=== PATIENT | male | born 1940 | race African-American/Black ===

== ENCOUNTER 2020-09-27 11:12 | Inpatient (IN) | payer MEDICARE, OTHER ==
[~2020-09-27] VITALS: Ht 190.5 cm; Wt 104.6 kg
--- NOTE | 2020-09-27 11:27 | ED.ADGEN ---
General Adult EDM: Chief Complaint: DIZZY/LIGHT HEADED HPI: HPI: Patient is an 80-year-old male who arrives ambulatory to the emergency department complaining of substernal chest pain since 1500 hrs. yesterday. Patient reports his pain is been ongoing since that time. Patient states whenever he stands up he feels very lightheaded as if he might pass out with this pain. Patient states in addition to this he has felt slightly short of air. Despite this he denies any history of cough or fever. He further denies any known sick contacts and states that he has had the coronavirus vaccination series. He further states that he is not had any nausea or diaphoresis and states his pain does not radiate. He is awake, alert and uncomfortable appearing. Review of Systems: Review of Systems: Constitutional: Denies fever or chills. [] Eyes: Denies change in visual acuity. [] HENT: Denies nasal congestion or sore throat. [] Respiratory: Reports shortness of air with exertion. Denies cough. [] Cardiovascular: Reports chest pain and feeling lightheaded. Denies edema. [] GI: Denies abdominal pain, nausea, vomiting, bloody stools or diarrhea. [] : Denies dysuria. [] Musculoskeletal: Denies back pain or joint pain. [] Integument: Denies rash. [] Neurologic: Denies headache, focal weakness or sensory changes. [] Endocrine: Denies polyuria or polydipsia. [] Lymphatic: Denies swollen glands. [] Psychiatric: Denies depression or anxiety. [] Physical Exam: PE: Constitutional: Well developed, well nourished, no acute distress, non-toxic appearance. [] HENT: Normocephalic, atraumatic, bilateral external ears normal, oropharynx moist, no oral exudates, nose normal. [] Eyes: PERRLA, EOMI, conjunctiva normal, no discharge. [] Neck: Normal range of motion, no tenderness, supple, no stridor. [] Cardiovascular:Heart rate regular rhythm, no murmur [] Lungs & Thorax: Bilateral breath sounds clear to auscultation [] Abdomen: Bowel sounds normal, soft, no tenderness, no masses, no pulsatile masses. [] Skin: Warm, dry, no erythema, no rash. [] Back: No tenderness, no CVA tenderness. [] Extremities: No tenderness, no cyanosis, no clubbing, ROM intact, no edema. [] Neurologic: Alert and oriented X 3, normal motor function, normal sensory function, no focal deficits noted. [] Psychologic: Affect normal, judgement normal, mood normal. [] Current Patient Data: Labs: Laboratory Tests Test 09/27/20 11:23 White Blood Count 6.0 x10^3/uL (4.0-11.0) Red Blood Count 4.73 x10^6/uL (4.30-5.70) Hemoglobin 13.1 g/dL (13.0-17.5) Hematocrit 39.8 % (39.0-53.0) Mean Corpuscular Volume 84 fL (79-100) Mean Corpuscular Hemoglobin 28 pg (25-35) Mean Corpuscular Hemoglobin Concent 33 g/dL (31-37) Red Cell Distribution Width 15.1 % (11.5-14.5) H Platelet Count 224 x10^3/uL (140-400) Neutrophils (%) (Auto) 69 % (31-73) Lymphocytes (%) (Auto) 17 % (24-48) L Monocytes (%) (Auto) 11 % (0-9) H Eosinophils (%) (Auto) 2 % (0-3) Basophils (%) (Auto) 1 % (0-3) Neutrophils # (Auto) 4.1 x10^3/uL (1.8-7.7) Lymphocytes # (Auto) 1.0 x10^3/uL (1.0-4.8) Monocytes # (Auto) 0.7 x10^3/uL (0.0-1.1) Eosinophils # (Auto) 0.1 x10^3/uL (0.0-0.7) Basophils # (Auto) 0.1 x10^3/uL (0.0-0.2) Sodium Level 141 mmol/L (136-145) Potassium Level 3.6 mmol/L (3.5-5.1) Chloride Level 102 mmol/L (98-107) Carbon Dioxide Level 29 mmol/L (21-32) Anion Gap 10 (6-14) Blood Urea Nitrogen 16 mg/dL (8-26) Creatinine 1.3 mg/dL (0.7-1.3) Estimated GFR (Cockcroft-Gault) 52.9 BUN/Creatinine Ratio 12 (6-20) Glucose Level 135 mg/dL (70-99) H Calcium Level 8.5 mg/dL (8.5-10.1) Total Bilirubin 1.5 mg/dL (0.2-1.0) H Aspartate Amino Transferase (AST) 24 U/L (15-37) Alanine Aminotransferase (ALT) 29 U/L (16-63) Alkaline Phosphatase 71 U/L (46-116) Troponin I Quantitative < 0.017 ng/mL (0.000-0.055) PS-Nvn-V-Type Natriuretic Peptide 6 pg/mL (0-449) Total Protein 7.1 g/dL (6.4-8.2) Albumin 3.6 g/dL (3.4-5.0) Albumin/Globulin Ratio 1.0 (1.0-1.7) Lipase 82 U/L (73-393) Laboratory Tests 09/27/20 11:23 Laboratory Tests 09/27/20 11:23 Vital Signs: Vital Signs Date Time Temp Pulse Resp B/P (MAP) Pulse Ox O2 Delivery O2 Flow Rate FiO2 09/27/20 11:37 97.5 91 16 150/76 (100) 96 Room Air 97.5 EKG: EKG: [] EKG was obtained at 11:18 AM which revealed a normal sinus rhythm with a ventricular rate of 76 bpm. 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 There are no acute ST/T wave changes to denote any acute ischemia. Heart Score: C/O Chest Pain: Yes HEART Score for Chest Pain: HEART Score for Chest Pain Response (Comments) Value History Slighlty/Non-Suspicious 0 ECG Nonspecific Repolarizatio 1 Age > 65 2 Risk Factors 1 or 2 Risk Factors 1 Troponin < Normal Limit 0 Total 4 Risk Factors: Risk Factors: DM, Current or recent (<one month) smoker, HTN, HLP, family history of CAD, obesity. Risk Scores: Score 0 - 3: 2.5% MACE over next 6 weeks - Discharge Home Score 4 - 6: 20.3% MACE over next 6 weeks - Admit for Clinical Observation Score 7 - 10: 72.7% MACE over next 6 weeks - Early Invasive Strategies Radiology/Procedures: Radiology/Procedures: [] Impression: [facility] [address] [place] [address] IMAGING REPORT Signed PATIENT: LUCIA GUPTA ACCOUNT: [id number] : 1940 LOCATION: ER AGE: 80 SEX: M EXAM STATUS: PRE ER ORD. PHYSICIAN: ROBERTO CARLOS MONTES DE OCA DO REASON: Chest pain PROCEDURE: PORTABLE CHEST 1V Single AP view of the chest. Comparison: 11/12/2012. Indication: Pain Findings: The heart is not enlarged. There is no pneumothorax or effusion. No air space or interstitial disease. Impression: 1. No acute cardiopulmonary process. Electronically signed by: Carlitos Dale MD (09/27/2020 11:43 AM) [id number] DICTATED and SIGNED BY: CARLITOS DALE MD DATE: 09/27/20 [id number] Course & Med Decision Making: Course & Med Decision Making Pertinent Labs and Imaging studies reviewed. (See chart for details) [] Dragon Disclaimer: Jimmy Disclaimer: This electronic medical record was generated, in whole or in part, using a voice recognition dictation system. Departure Departure Impression: Primary Impression: Chest pain Disposition: ADMITTED INPATIENT Admitting Physician: JARAD Condition: STABLE Referrals: NON,STAFF (PCP) ROBERTO CARLOS MONTES DE OCA DO Sep 27, 2020 11:26
[2020-09-27 11:36] LABS: BASO # 0.1 x10^3/uL (0.0-0.2); BASO % 1 % (0-3); EOS # 0.1 x10^3/uL (0.0-0.7); EOS % 2 % (0-3); HEMATOCRIT 39.8 % (39.0-53.0); HEMOGLOBIN 13.1 g/dL (13.0-17.5); LYMPH % 17 % (24-48); MEAN CORPUSCULAR HEMOGLOBIN 28 pg (25-35); MEAN CORPUSCULAR HGB CONC 33 g/dL (31-37); MEAN CORPUSCULAR VOLUME 84 fL (79-100); MONO # 0.7 x10^3/uL (0.0-1.1); MONO % 11 % (0-9); NEUT # 4.1 x10^3/uL (1.8-7.7); NEUT % 69 % (31-73); PLATELET COUNT 224 x10^3/uL (140-400); RED BLOOD COUNT 4.73 x10^6/uL (4.30-5.70); RED CELL DISTRIBUTION WIDTH 15.1 % (11.5-14.5)
--- NOTE | 2020-09-27 11:45 | RAD ---
Single AP view of the chest. Comparison: 11/12/2012. Indication: Pain Findings: The heart is not enlarged. There is no pneumothorax or effusion. No air space or interstitial diseas e. Impression: 1. No acute cardiopulmonary process. Electronically signed by: Carlitos Inman MD (09/27/2020 11:43 AM) [id number]
[2020-09-27 11:54] LABS: CALCIUM 8.5 mg/dL (8.5-10.1); CREATININE 1.3 mg/dL (0.7-1.3); GFR 52.9; POTASSIUM 3.6 mmol/L (3.5-5.1)
[2020-09-27 11:59] LABS: ALBUMIN 3.6 g/dL (3.4-5.0); TOTAL BILIRUBIN 1.5 mg/dL (0.2-1.0); TOTAL PROTEIN 7.1 g/dL (6.4-8.2)
--- NOTE | 2020-09-27 12:24 | EKG ---
[facility] [address] [place] [address] Test Date: 2020-09-27 Test Time: 11:18:51 Pat Name: LUCIA GUPTA Department: Room: Gender: M [employer] Driving: : 1940 Requested By: ROBERTO CARLOS MONTES DE OCA Order Number: [id number] Reading MD: Jeffrey Simpson MD Measurements Intervals [place]ou Rate: 76 P: 57 GA: 148 QRS: -55 QRSD: 94 T: 82 QT: 392 QTc: 445 Interpretive Statements SINUS RHYTHM ABNORMAL LEFT AXIS DEVIATION QRS(T) CONTOUR ABNORMALITY CONSISTENT WITH INFERIOR INFARCT PROBABLY OLD ST & T ABNORMALITY, CONSIDER Electronically Signed On 09-28-2020 8:52:56 CDT by Jeffrey Simpson MD
[2020-09-27] MEDS ORDERED: MORPHINE SULFATE 4 MG/ML VIAL. IV PRN (12:45)
[2020-09-27] MEDS ORDERED: ASPIRIN 325 MG TABLET PO ONE (12:45)
[2020-09-27] MEDS ORDERED: ONDANSETRON PF 4 MG/2 ML VIAL. IV PRN (12:45)
[2020-09-27 14:30] VITALS: BP 168/89
[2020-09-27] MEDS ORDERED: MV-M1TAB7 PO (16:51)
[2020-09-27] MEDS ORDERED: BUDE10.22 IH (16:51)
[2020-09-27] MEDS ORDERED: TIOT18CA IH (16:51)
[2020-09-27] MEDS ORDERED: TAMS0.4C97 PO (16:51)
[2020-09-27] MEDS ORDERED: ALBU2.5V5 NEB (16:51)
[2020-09-27] MEDS ORDERED: HYDR50TA9 PO (16:51)
[2020-09-27] MEDS ORDERED: ATOR40TA59 PO (16:51)
[2020-09-27] MEDS ORDERED: ALBUTEROL SULFATE 2.5 MG/3 ML NEBU. NEB PRN (17:00)
--- NOTE | 2020-09-27 17:48 | HP ---
ADMIT DATE: 09/27/2020 ADDENDUM PAST MEDICAL HISTORY: COPD, hypertension, hyperlipidemia, BPH and previous tobacco abuse. JED DR: Nimo TID: [id number]
--- NOTE | 2020-09-27 17:50 | HP ---
ADMIT DATE: 09/27/2020 CHIEF COMPLAINT: Chest pain and dizziness. HISTORY OF PRESENT ILLNESS: The patient is a pleasant 80-year-old male who presents to the ER today with chest pain that has been occurring since 3:00 yesterday. It is intermittent, substernal. He has associated weakness and feels like he is going to pass out when he walks. He also feels short of breath, rates his symptoms at 7/10. It is worse with moving, better with sitting still, creates some anxiety for him. I discussed the case with the ER physician. We are going to admit the patient and consult Cardiology. PAST MEDICAL HISTORY: COPD, hypertension, hyperlipidemia, BPH and previous tobacco abuse. PAST SURGICAL HISTORY: None. FAMILY HISTORY: Diabetes. SOCIAL HISTORY: He does not currently drink, smoke or take drugs. He is retired. MEDICATIONS: Reviewed. ALLERGIES: Reviewed. Please refer to the MRAD. REVIEW OF SYSTEMS: GENERAL: No history of weight change, weakness or fevers. SKIN: No bruising, hair changes or rashes. EYES: No blurred, double or loss of vision. NOSE AND THROAT: No history of nosebleeds, hoarseness or sore throat. HEART: He complains of chest pain. LUNGS: He complains of shortness of breath. GASTROINTESTINAL: Denies changes in appetite, nausea, vomiting, diarrhea or constipation. GENITOURINARY: No history of frequency, urgency, hesitancy or nocturia. NEUROLOGIC: Denies history of numbness, tingling, tremor or weakness. PSYCHIATRIC: No history of panic, anxiety or depression. ENDOCRINE: No history of heat or cold intolerance, polyuria or polydipsia. EXTREMITIES: Denies muscle weakness, joint pain, pain on walking or stiffness. . PHYSICAL EXAMINATION: VITALS: Within normal limits and are stable. GENERAL: No apparent distress. Alert and oriented. HEENT: Normal cephalic atraumatic, external auditory canals are patent EYES: Extraocular muscles are intact, pupils are equally round and reactive to light and accommodation MUSCULOSKELETAL: Well developed, well nourished, good range of motion ENDOCRINE: No thyromegaly was palpated LYMPHATICS: No cervical chain or axillary nodes were noted HEMATOPOIETIC: No bruising NECK: Supple, no JVD, no thyromegaly was noted. LUNGS: He has decreased breath sounds. HEART: RRR, S1, S2 present. Peripheral pulses intact, no obvious murmurs were noted. ABDOMEN: Soft, nontender. Positive bowel sounds no organomegaly, normal bowel sounds. EXTREMITIES: Without any cyanosis, clubbing, or edema. Pedal pulses intact, Homans sign is negative. NEUROLOGIC: Normal speech, normal tone. A and O x 3, moves all extremities, no obvious focal deficits. PSYCHIATRIC: Normal affect, normal mood. Stable. SKIN: No ulcerations or rashes, good skin turgor, no jaundice. VASCULAR: Good capillary refill, neurovascular bundle appears to be intact. LABORATORY DATA: Hematology is normal. Electrolytes are normal. Troponin is 0. Chest x-ray; without acute changes. ASSESSMENT AND PLAN: Chest pain and lightheadedness. The patient will be admitted. We will check serial enzymes, serial EKGs. Consult Cardiology. Cardiac monitoring, home medications, deep venous thrombosis prophylaxis. Full code. P.r.n. Morphine, p.r.n Zofran. YOLANDA/SJ/SUNG DR: YOLANDA/iveth TID: [id number]
[2020-09-27 19:20] VITALS: BP 115/62
[2020-09-27] MEDS: IPRATRPIUM/ALBUTEROL 0.5/2.5MG 3 ML NEBU. NEB SCH (19:46)
[2020-09-27] MEDS: BUDESONIDE 0.5 MG/2 ML NEBU. NEB SCH (19:46)
[2020-09-27] MEDS: ATORVASTATIN CALCIUM 40 MG TABLET. PO SCH (20:15)
[2020-09-27] MEDS: TAMSULOSIN 0.4 MG CAP.ER.24H. PO SCH (20:15)
[2020-09-27] MEDS ORDERED: NON FORMULARY ITEM (Budesonide/Formoterol Fumarate (Symbicort 80-4.5 Mcg Inhaler) 2 PUFF) IH SCH (21:00)
[2020-09-27 23:36] VITALS: BP 116/56
[2020-09-28 03:10] VITALS: BP 113/58
[2020-09-28 07:00] VITALS: BP 134/80
[2020-09-28] MEDS: BUDESONIDE 0.5 MG/2 ML NEBU. NEB SCH ×2 (07:47→20:52)
[2020-09-28] MEDS: IPRATRPIUM/ALBUTEROL 0.5/2.5MG 3 ML NEBU. NEB SCH ×4 (07:47→20:52)
--- NOTE | 2020-09-28 08:56 | PDOC2 ---
CARDIOLOGY CONSULT NOTE DATE OF SERVICE: DATE: 09/28/20 TIME: 08:53 CHIEF COMPLAINT: Chest pain HPI: 80-year-old man with past medical history as noted below who presents to the hospital in the setting of chest pain. Initial troponin was unremarkable but his peak to 2.1. He reports that at baseline he has exertional dyspnea with activities of daily living related to his COPD. He denies any previous anginal symptoms. No syncope or palpitations. Overnight he denies any other new or worsening chest pain and currently denies having active pain. PMHX: 1. Dyslipidemia 2. BPH 3. Mild hypertension SOCHX: Prior tobacco abuse, currently does not smoke use illicit drugs or consume alcohol. FAMHX: Noncontributory CURRENT MEDS: Current Medications Medications (Trade) Dose Ordered Sig/Jose Route PRN Reason Start Time Stop Time Status Last Admin Dose Admin Ondansetron HCl (Zofran) 4 mg PRN Q8HRS PRN IV NAUSEA/VOMITING 09/27/20 12:45 09/28/20 12:44 09/27/20 12:45 Morphine Sulfate (Morphine Sulfate) 4 mg PRN Q2HR PRN IV PAIN 09/27/20 12:45 09/28/20 12:44 09/27/20 12:46 Aspirin (Serene Aspirin) 325 mg 1X ONCE PO 09/27/20 12:45 09/27/20 12:46 DC 09/27/20 12:45 Atorvastatin Calcium (Lipitor) 40 mg HS PO 09/27/20 21:00 09/27/20 20:15 Tamsulosin HCl (Flomax) 0.8 mg HS PO 09/27/20 21:00 09/27/20 20:15 Albuterol/ Ipratropium (Duoneb) 3 ml RTQID NEB 09/27/20 20:00 09/28/20 07:47 Budesonide (Pulmicort) 0.5 mg RTBID NEB 09/27/20 20:00 09/28/20 07:47 Enoxaparin Sodium (Lovenox 100mg Syringe) 100 mg 1X ONCE SQ 09/28/20 00:30 09/28/20 00:31 DC 09/28/20 00:36 ALLERGIES: Allergies Coded Allergies Type Severity Reaction Last Updated Verified No Known Drug Allergies 09/27/20 No ROS: Negative unless otherwise mentioned above in HPI PHYSICAL EXAM: Vital Signs/I&O: Vital Signs Date Time Temp Pulse Resp B/P (MAP) Pulse Ox O2 Delivery O2 Flow Rate FiO2 09/28/20 07:49 97 Room Air 09/28/20 07:00 97.8 68 18 134/80 (98) 97.8 I & O 09/27/20 09/27/20 09/28/20 15:00 23:00 07:00 Intake Total 200 ml 300 ml Balance 200 ml 300 ml Physical Exam: The patient appeared well nourished and normally developed. Head exam is unremarkable. No scleral icterus or corneal arcus noted. Neck is without jugular venous distension, thyromegaly, or carotid bruits. Carotid upstrokes are brisk bilaterally. Lungs are clear to auscultation and percussion. Cardiac exam reveals the PMI to be normally sized and situated. Rhythm is regular. First and second heart sounds normal. No murmurs, rubs or gallops. Abdominal exam reveals normal bowel sounds, no masses, no organomegaly and no a ortic enlargement. Extremities are nonedematous and both femoral and pedal pulses are normal. Msk: No traumua Neuro: No focal deficits DIAGNOSTIC TESTIN. Echocardiogram demonstrates mildly diminished ejection fraction with lateral wall hypokinesis 2. EKG demonstrates prior inferior wall infarct. ASSESSMENT: 1. Non-STEMI 2. History of dyslipidemia 3. Hypertension 4. COPD and chronic dyspnea PLAN: 1. Continue aspirin, Lovenox 2. Continue statin therapy 3. Start low-dose beta-willis 4. Discussed risks and benefits of cardiac catheterization we will plan for this on Wednesday unless there are any more extenuating circumstances with worsening enzymes or pain. Negative's consultation we will follow along closely. ELIZABETH CASTANEDA MD Sep 28, 2020 08:56
[2020-09-28] MEDS ORDERED: NON FORMULARY ITEM (Tiotropium Bromide (Spiriva) 1 CAP) IH SCH (09:00)
[2020-09-28] MEDS: ASPIRIN ENTERIC COATED 81 MG TABLET.DR. PO SCH (10:27)
[2020-09-28] MEDS: hydroCHLOROthiazide 25 MG TABLET PO SCH (10:28)
[2020-09-28] MEDS: CHOLECALCIFEROL (VITAMIN D3) 1,000 UNIT TABLET PO SCH (10:28)
--- NOTE | 2020-09-28 10:45 | PDOC ---
[employer] PROGRESS NOTE Date of Service DOS: DATE: 09/28/20 TIME: 10:45 Chief Complaint Chief Complaint Chest pain and dizziness History of Present Illness History of Present Illness 09/28/20 Patient seen and examined at bedside Chart reviewed Discussed with RN Troponins have increased from < 0.017 to peak at 2.6 Echo demonstrates mildly diminished EF 09/27/20 The patient is a pleasant 80-year-old male who presents to the ER today with chest pain that has been occurring since 3:00 yesterday. It is intermittent, substernal. He has associated weakness and feels like he is going to pass out when he walks. He also feels short of breath, rates his symptoms at 7/10. It is worse with moving, better with sitting still, creates some anxiety for him. I discussed the case with the ER physician. We are going to admit the patient and consult Cardiology. Vitals/I&O Vitals/I&O: Vital Signs Date Time Temp Pulse Resp B/P (MAP) Pulse Ox O2 Delivery O2 Flow Rate FiO2 09/28/20 07:49 97 Room Air 09/28/20 07:00 97.8 68 18 134/80 (98) 97.8 I & O 09/27/20 09/27/20 09/28/20 15:00 23:00 07:00 Intake Total 200 ml 300 ml Balance 200 ml 300 ml Physical Exam General: Alert Heart: Regular rate Lungs: Clear Abdomen: Normal bowel sounds Extremities: No clubbing Skin: No significant lesion Labs Labs: Laboratory Tests Test 09/27/20 11:23 09/27/20 14:30 09/27/20 18:30 White Blood Count 6.0 x10^3/uL (4.0-11.0) Red Blood Count 4.73 x10^6/uL (4.30-5.70) Hemoglobin 13.1 g/dL (13.0-17.5) Hematocrit 39.8 % (39.0-53.0) Mean Corpuscular Volume 84 fL (79-100) Mean Corpuscular Hemoglobin 28 pg (25-35) Mean Corpuscular Hemoglobin Concent 33 g/dL (31-37) Red Cell Distribution Width 15.1 % (11.5-14.5) Platelet Count 224 x10^3/uL (140-400) Neutrophils (%) (Auto) 69 % (31-73) Lymphocytes (%) (Auto) 17 % (24-48) Monocytes (%) (Auto) 11 % (0-9) Eosinophils (%) (Auto) 2 % (0-3) Basophils (%) (Auto) 1 % (0-3) Neutrophils # (Auto) 4.1 x10^3/uL (1.8-7.7) Lymphocytes # (Auto) 1.0 x10^3/uL (1.0-4.8) Monocytes # (Auto) 0.7 x10^3/uL (0.0-1.1) Eosinophils # (Auto) 0.1 x10^3/uL (0.0-0.7) Basophils # (Auto) 0.1 x10^3/uL (0.0-0.2) Sodium Level 141 mmol/L (136-145) Potassium Level 3.6 mmol/L (3.5-5.1) Chloride Level 102 mmol/L (98-107) Carbon Dioxide Level 29 mmol/L (21-32) Anion Gap 10 (6-14) Blood Urea Nitrogen 16 mg/dL (8-26) Creatinine 1.3 mg/dL (0.7-1.3) Estimated GFR (Cockcroft-Gault) 52.9 BUN/Creatinine Ratio 12 (6-20) Glucose Level 135 mg/dL (70-99) Calcium Level 8.5 mg/dL (8.5-10.1) Total Bilirubin 1.5 mg/dL (0.2-1.0) Aspartate Amino Transf (AST/SGOT) 24 U/L (15-37) Alanine Aminotransferase (ALT/SGPT) 29 U/L (16-63) Alkaline Phosphatase 71 U/L (46-116) Troponin I Quantitative < 0.017 ng/mL (0.000-0.055) 0.402 ng/mL (0.000-0.055) 2.610 ng/mL (0.000-0.055) TR-Efi-Y-Type Natriuretic Peptide 6 pg/mL (0-449) Total Protein 7.1 g/dL (6.4-8.2) Albumin 3.6 g/dL (3.4-5.0) Albumin/Globulin Ratio 1.0 (1.0-1.7) Lipase 82 U/L (73-393) Assessment and Plan Assessmemt and Plan Problems Medical Problems: (1) Chest pain Status: Acute Assessment Non-STEMI Dyslipidemia Hypertension COPD and chronic dyspnea Plan Cardiac Monitoring Agree with aspirin and lovenox per cardiology note Agree with statin therapy per cardiology note Start low-dose beta-blockers per cardiology note Plan for cardiac catheterization for Wednesday unless worsening enzymes or pain Trend labs Continue home medications DVT prophylaxis Full code Comment Review of Relevant I have reviewed the following items daniel (where applicable) has been applied. Medications: Current Medications Medications (Trade) Dose Ordered Sig/Jose Route PRN Reason Start Time Stop Time Status Last Admin Dose Admin Ondansetron HCl (Zofran) 4 mg PRN Q8HRS PRN IV NAUSEA/VOMITING 09/27/20 12:45 09/28/20 12:44 09/27/20 12:45 Morphine Sulfate (Morphine Sulfate) 4 mg PRN Q2HR PRN IV PAIN 09/27/20 12:45 09/28/20 12:44 09/27/20 12:46 Aspirin (Serene Aspirin) 325 mg 1X ONCE PO 09/27/20 12:45 09/27/20 12:46 DC 09/27/20 12:45 Atorvastatin Calcium (Lipitor) 40 mg HS PO 09/27/20 21:00 09/27/20 20:15 Tamsulosin HCl (Flomax) 0.8 mg HS PO 09/27/20 21:00 09/27/20 20:15 Hydrochlorothiazide (Hydrodiuril) 25 mg DAILY PO 09/28/20 09:00 09/28/20 10:28 Vitamin D (Vitamin D3) 2,000 unit DAILY PO 09/28/20 09:00 09/28/20 10:28 Albuterol/ Ipratropium (Duoneb) 3 ml RTQID NEB 09/27/20 20:00 09/28/20 07:47 Budesonide (Pulmicort) 0.5 mg RTBID NEB 09/27/20 20:00 09/28/20 07:47 Enoxaparin Sodium (Lovenox 100mg Syringe) 100 mg 1X ONCE SQ 09/28/20 00:30 09/28/20 00:31 DC 09/28/20 00:36 Aspirin (Ecotrin) 81 mg DAILYWBKFT PO 09/28/20 09:00 09/28/20 10:27 Enoxaparin Sodium (Lovenox 100mg Syringe) 100 mg Q12HR SQ 09/28/20 09:00 09/28/20 10:28 Justifications for Admission Other Justification JAXSON SOTO III DO Sep 28, 2020 10:45
[2020-09-28 11:00] VITALS: BP 127/59
[2020-09-28 15:00] VITALS: BP 135/69
--- NOTE | 2020-09-28 16:54 | CARD ---
MR#: [id number] Date of Study: 09/27/2020 Ordering Physician: EDEN ORNELAS, Referring Physician: EDEN ORNELAS, Tech: Stacie Mackjossyezequiel, [facility] APPROVED REPORT EXAM: Two-dimensional and M-mode echocardiogram with Doppler and color Doppler. Other Information Quality : FairHR: 78bpm Technically limited study due to body habitus. INDICATION Chest Pain RISK FACTORS Hypertension Hyperlipidemia 2D DIMENSIONS RVDd2.5 (2.9-3.5cm)Left Atrium(2D)3.1 (1.6-4.0cm) IVSd0.7 (0.7-1.1cm)Aortic Root(2D)3.5 (2.0-3.7cm) LVDd5.4 (3.9-5.9cm)LVOT Diameter1.9 (1.8-2.4cm) PWd0.9 (0.7-1.1cm)LVDs3.7 (2.5-4.0cm) FS (%) 31.1 %SV82.3 ml LVEF(%)58.3 (>50%) Aortic Valve AoV Peak Yo.188.8cm/sAoV VTI37.1cm AO Peak GR.14.3mmHgLVOT VTI 31.88cm AO Mean GR.8mmHg Mitral Valve MV E Yrwlzwnc23.1cm/sMV DECEL OUXQ217re MV A Jokhyygq983.7cm/sE/A Ratio0.8 TDI Lateral E' P. V9.46cm/sMedial E' P. V8.17cm/s E/Lateral E'9.4E/Medial E'10.9 Tricuspid Valve TR P. Ckqqnote284bt/sRAP [id number] TR Peak Gr.51arWvPAHH08tpXx LEFT VENTRICLE The left ventricle is normal size. There is normal left ventricular wall thickness. The left ventricu lar systolic function is normal and the ejection fraction is within normal range. The Ejection Fracti on is 50-55%. The basal to mid inferior, inferolateral mcmahan are moderately hypokinetic. Transmitral Doppler flow pattern is Grade I-abnormal relaxation pattern. RIGHT VENTRICLE The right ventricle is normal size. There is normal right ventricular wall thickness. The right ventr icular systolic function is normal. ATRIA The left atrium size is normal. The right atrium size is normal. The interatrial septum is intact wit h no evidence for an atrial septal defect or patent foramen ovale as noted on 2-D or Doppler imaging. AORTIC VALVE The aortic valve is calcified and not well visualized. Doppler and Color Flow revealed no significant aortic regurgitation. There is no significant aortic valvular stenosis. Calculated aortic valve area is 2.61 cm2 with maximum pressure gradient of 16 mmHg and mean pressure gradient of 8 mmHg. MITRAL VALVE The mitral valve is normal in structure and function. There is no evidence of mitral valve prolapse. There is no mitral valve stenosis. Doppler and Color-flow revealed trace mitral regurgitation. TRICUSPID VALVE The tricuspid valve is normal in structure and function. Doppler and Color Flow revealed trace tricus pid regurgitation with an estimated PAP of 44 mmHg. There is no tricuspid valve stenosis. PULMONIC VALVE The pulmonic valve is not well visualized. Doppler and Color Flow revealed trace pulmonic valvular re gurgitation. There is no pulmonic valvular stenosis. GREAT VESSELS The aortic root is normal in size. The IVC is dilated and collapses <50% with inspiration. PERICARDIAL EFFUSION There is no evidence of significant pericardial effusion. Critical Notification Critical Value: No <Conclusion> The left ventricular systolic function is normal and the ejection fraction is within normal range. Th e Ejection Fraction is 50-55%. The basal to mid inferior, inferolateral mcmahan are moderately hypokinetic. Doppler and Color Flow revealed trace tricuspid regurgitation with an estimated PAP of 44 mmHg. Signed by : Jeffrey Simpson, Electronically Approved : 09/28/2020 16:54:04
[2020-09-28 19:57] VITALS: BP 144/74
[2020-09-28] MEDS: TAMSULOSIN 0.4 MG CAP.ER.24H. PO SCH (21:43)
[2020-09-28] MEDS: ATORVASTATIN CALCIUM 40 MG TABLET. PO SCH (21:43)
[2020-09-28 23:00] VITALS: BP 128/75
[2020-09-29 03:27] VITALS: BP 111/69
[2020-09-29 07:00] VITALS: BP 140/79
[2020-09-29] MEDS: BUDESONIDE 0.5 MG/2 ML NEBU. NEB SCH ×2 (07:28→20:37)
[2020-09-29] MEDS: IPRATRPIUM/ALBUTEROL 0.5/2.5MG 3 ML NEBU. NEB SCH ×4 (07:29→20:35)
[2020-09-29] MEDS: hydroCHLOROthiazide 25 MG TABLET PO SCH (09:23)
[2020-09-29] MEDS: CHOLECALCIFEROL (VITAMIN D3) 1,000 UNIT TABLET PO SCH (09:23)
[2020-09-29] MEDS: ASPIRIN ENTERIC COATED 81 MG TABLET.DR. PO SCH (09:23)
[2020-09-29 11:00] VITALS: BP 138/75
--- NOTE | 2020-09-29 11:15 | PDOC ---
Provider Note Date of Service: DATE: 09/29/20 TIME: 11:14 Provider Note NPO at midnight. Plan for [facility] tomorrow. Thanks. Discussed r/b/a. Justifications for Admission Other Justification ELIZABETH CASTANEDA MD Sep 29, 2020 11:15
--- NOTE | 2020-09-29 12:53 | PDOC ---
[facility] PROGRESS NOTE Date of Service DOS: DATE: 09/29/20 TIME: 12:52 Chief Complaint Chief Complaint Chest pain and dizziness History of Present Illness History of Present Illness 09/29/20 Patient seen and examined at bedside Chart reviewed Discussed with RN Discussed with Cardiology Troponins continue to increase, peaking at 6.1 yesterday Left cardiac catheterization planned for tomorrow per cardiology 09/28/20 Patient seen and examined at bedside Chart reviewed Discussed with RN Troponins have increased from < 0.017 to peak at 2.6 Echo demonstrates mildly diminished EF 09/27/20 The patient is a pleasant 80-year-old male who presents to the ER today with chest pain that has been occurring since 3:00 yesterday. It is intermittent, substernal. He has associated weakness and feels like he is going to pass out when he walks. He also feels short of breath, rates his symptoms at 7/10. It is worse with moving, better with sitting still, creates some anxiety for him. I discussed the case with the ER physician. We are going to admit the patient and consult Cardiology. Vitals/I&O Vitals/I&O: Vital Signs Date Time Temp Pulse Resp B/P (MAP) Pulse Ox O2 Delivery O2 Flow Rate FiO2 09/29/20 11:22 97 Room Air 09/29/20 11:00 97.1 68 18 138/75 (96) 97.1 I & O 09/28/20 09/28/20 09/29/20 15:00 23:00 07:00 Intake Total 620 ml 460 ml 0 ml Output Total 250 ml Balance 620 ml 210 ml 0 ml Physical Exam General: Alert Heart: Regular rate Lungs: Clear Abdomen: Normal bowel sounds Extremities: No clubbing Skin: No significant lesion Labs Labs: Laboratory Tests Test 09/28/20 16:05 Troponin I Quantitative 5.165 ng/mL (0.000-0.055) Assessment and Plan Assessmemt and Plan Problems Medical Problems: (1) Chest pain Status: Acute Assessment Non-STEMI Dyslipidemia Hypertension COPD and chronic dyspnea Plan Cardiac Monitoring Agree with aspirin and lovenox per cardiology Agree with statin therapy per cardiology Continue low-dose beta-blockers per cardiology Left cardiac catheterization tomorrow Trend labs Continue home medications DVT prophylaxis Full code Comment Review of Relevant I have reviewed the following items daniel (where applicable) has been applied. Justifications for Admission Other Justification JAXSON SOTO III DO Sep 29, 2020 12:53
[2020-09-29 15:00] VITALS: BP 131/75
[2020-09-29] MEDS ORDERED: INSULIN GLARGINE SYRINGE. SQ SCH (18:00)
[2020-09-29 19:44] VITALS: BP 122/73
--- NOTE | 2020-09-29 20:27 | NUR ---
NURSING NOTE Yoandy held this HS d/t pt having heart cath in AM. Addendum: 09/29/20 at 2105 by CARLA WATKINS RN Yoandy not held. Documented incorrectly.
[2020-09-29] MEDS: TAMSULOSIN 0.4 MG CAP.ER.24H. PO SCH (21:09)
[2020-09-29] MEDS: ATORVASTATIN CALCIUM 40 MG TABLET. PO SCH (21:10)
[2020-09-29 23:14] VITALS: BP 148/72
[2020-09-30] VITALS (16 sets, daily range): BP systolic 99–145; BP diastolic 64–92
[2020-09-30] MEDS: BUDESONIDE 0.5 MG/2 ML NEBU. NEB SCH ×2 (07:23→19:54)
[2020-09-30] MEDS: IPRATRPIUM/ALBUTEROL 0.5/2.5MG 3 ML NEBU. NEB SCH ×4 (07:23→19:54)
[2020-09-30] MEDS: ASPIRIN ENTERIC COATED 81 MG TABLET.DR. PO SCH (08:46)
[2020-09-30] MEDS: CHOLECALCIFEROL (VITAMIN D3) 1,000 UNIT TABLET PO SCH (08:46)
[2020-09-30] MEDS ORDERED: LIDOCAINE 1% PF 2 ML VIAL. ONE (09:41)
[2020-09-30] MEDS ORDERED: IODIXANOL 320 MG/ML 100 ML VIAL. ONE (09:41)
[2020-09-30] MEDS ORDERED: fentaNYL PF VIAL 100 MCG/2 ML VIAL ONE (09:47)
[2020-09-30] MEDS ORDERED: NITROGLYCERIN 200 MCG/2 ML SYRINGE FOR CATH/VASC LAB. ONE (09:48)
[2020-09-30] MEDS ORDERED: MIDAZOLAM HCL/PF 2 MG/2 ML VIAL. ONE (09:48)
[2020-09-30] MEDS ORDERED: VERAPAMIL 5 MG/2 ML VIAL. ONE (09:48)
[2020-09-30] MEDS ORDERED: HEPARIN for IV BOLUS 10,000 UNIT/10 ML VIAL. ONE (09:48)
[2020-09-30] MEDS ORDERED: HEPARIN for IV BOLUS 10,000 UNIT/10 ML VIAL. IART ONE (10:00)
[2020-09-30] MEDS ORDERED: NITROGLYCERIN 200 MCG/2 ML SYRINGE FOR CATH/VASC LAB. IART ONE (10:00)
[2020-09-30] MEDS ORDERED: LIDOCAINE 1% PF 2 ML VIAL. INJ ONE (10:00)
[2020-09-30] MEDS ORDERED: VERAPAMIL 5 MG/2 ML VIAL. IART ONE (10:00)
[2020-09-30] MEDS ORDERED: fentaNYL PF VIAL 100 MCG/2 ML VIAL IV ONE (10:00)
[2020-09-30] MEDS ORDERED: IODIXANOL 320 MG/ML 100 ML VIAL. IART ONE (10:00)
[2020-09-30] MEDS ORDERED: MIDAZOLAM HCL/PF 2 MG/2 ML VIAL. IV ONE (10:00)
[2020-09-30] MEDS ORDERED: CONTRAST GIVEN. MC PRN (10:15)
[2020-09-30] MEDS ORDERED: BIVALIRUDIN 250 MG VIAL. IV ONE ×2 (11:23→11:30)
--- NOTE | 2020-09-30 11:38 | PDOC ---
[facility] PROGRESS NOTE Date of Service DOS: DATE: 09/30/20 TIME: 11:37 Chief Complaint Chief Complaint Chest pain and dizziness History of Present Illness History of Present Illness 09/29/20 Patient seen and examined at bedside Chart reviewed Discussed with RN Discussed with Son as he was present in the room Heart catheterization planned for today 09/29/20 Patient seen and examined at bedside Chart reviewed Discussed with RN Discussed with Cardiology Troponins continue to increase, peaking at 6.1 yesterday Left cardiac catheterization planned for tomorrow per cardiology 09/28/20 Patient seen and examined at bedside Chart reviewed Discussed with RN Troponins have increased from < 0.017 to peak at 2.6 Echo demonstrates mildly diminished EF 09/27/20 The patient is a pleasant 80-year-old male who presents to the ER today with chest pain that has been occurring since 3:00 yesterday. It is intermittent, substernal. He has associated weakness and feels like he is going to pass out when he walks. He also feels short of breath, rates his symptoms at 7/10. It is worse with moving, better with sitting still, creates some anxiety for him. I discussed the case with the ER physician. We are going to admit the patient and consult Cardiology. Vitals/I&O Vitals/I&O: Vital Signs Date Time Temp Pulse Resp B/P (MAP) Pulse Ox O2 Delivery O2 Flow Rate FiO2 09/30/20 08:00 Room Air 09/30/20 07:24 96 09/30/20 07:00 97.7 82 18 110/82 (91) 97.7 I & O 09/29/20 09/29/20 09/30/20 15:00 23:00 07:00 Intake Total 950 ml 520 ml 0 ml Output Total 150 ml Balance 950 ml 370 ml 0 ml Physical Exam General: Alert Heart: Regular rate Lungs: Clear Abdomen: Normal bowel sounds Extremities: No clubbing Skin: No significant lesion Labs Labs: Laboratory Tests Test 09/30/20 10:00 SARS-CoV-2 Antigen (Rapid) Negative (NEGATIVE) Assessment and Plan Assessmemt and Plan Problems Medical Problems: (1) Chest pain Status: Acute Assessment Non-STEMI Dyslipidemia Hypertension COPD and chronic dyspnea Plan Cardiac Monitoring Agree with aspirin and lovenox per cardiology Agree with statin therapy per cardiology Continue low-dose beta-blockers per cardiology Left cardiac catheterization today Trend labs Continue home medications DVT prophylaxis Full code Comment Review of Relevant I have reviewed the following items daniel (where applicable) has been applied. Medications: Current Medications Medications (Trade) Dose Ordered Sig/Jose Route PRN Reason Start Time Stop Time Status Last Admin Dose Admin Heparin Sodium/ Sodium Chloride (HEPARIN for ARTERIAL LINE FLUSH) 1,000 unit 1X ONCE IART 09/30/20 10:00 09/30/20 10:02 DC 09/30/20 10:00 Heparin Sodium/ Sodium Chloride (HEPARIN for ARTERIAL LINE FLUSH) 1,000 unit 1X ONCE IART 09/30/20 10:00 09/30/20 10:02 DC 09/30/20 10:00 Bivalirudin (Angiomax) 250 mg 1X ONCE IV 09/30/20 11:30 09/30/20 11:34 DC 09/30/20 11:30 Justifications for Admission Other Justification JAXSON SOTO III DO Sep 30, 2020 11:38
--- NOTE | 2020-09-30 11:51 | NUR ---
SW following. Discussed with RN, pt from home with , room air, NPO, gets around fine. Pt having a cath today. RN advise no SW needs and anticipates possible discharge home pending cath. SW will continue to follow.
[2020-09-30] MEDS: hydroCHLOROthiazide 25 MG TABLET PO SCH (16:15)
[2020-09-30] MEDS ORDERED: HEPARIN for IV BOLUS 10,000 UNIT/10 ML VIAL. IV PRN (18:45)
[2020-09-30] MEDS ORDERED: HEPARIN 25,000UTS/250ML PREMIX 250 ML IV PRN (18:45)
[2020-09-30 20:50] LABS: BASO # 0.1 x10^3/uL (0.0-0.2); BASO % 1 % (0-3); EOS # 0.2 x10^3/uL (0.0-0.7); EOS % 2 % (0-3); HEMATOCRIT 41.9 % (39.0-53.0); HEMOGLOBIN 13.7 g/dL (13.0-17.5); LYMPH # 1.6 x10^3/uL (1.0-4.8); LYMPH % 21 % (24-48); MEAN CORPUSCULAR HEMOGLOBIN 27 pg (25-35); MEAN CORPUSCULAR HGB CONC 33 g/dL (31-37); MEAN CORPUSCULAR VOLUME 84 fL (79-100); MONO # 1.1 x10^3/uL (0.0-1.1); MONO % 15 % (0-9); NEUT # 4.4 x10^3/uL (1.8-7.7); NEUT % 60 % (31-73); PLATELET COUNT 223 x10^3/uL (140-400); RED BLOOD COUNT 4.99 x10^6/uL (4.30-5.70); RED CELL DISTRIBUTION WIDTH 15.2 % (11.5-14.5); WHITE BLOOD COUNT 7.4 x10^3/uL (4.0-11.0)
[2020-09-30] MEDS: ATORVASTATIN CALCIUM 40 MG TABLET. PO SCH (20:53)
[2020-09-30] MEDS: TAMSULOSIN 0.4 MG CAP.ER.24H. PO SCH (20:54)
--- NOTE | 2020-09-30 21:04 | NUR ---
2049 DR VILLAGOMEZ NOTIFIED OF SCHEDULED LOVENOX AT HS ORDER GIVEN TO DC AND TO SRTART HEP GTT PER PREVIOUS CONVERSATION. PMRN
--- NOTE | 2020-09-30 21:06 | NUR ---
1944 DR VILLAGOMEZ NOTIFIED OF PT WITH BLEEDING/ OOZING AT RADIAL SITE POST HEART CATH, PRESSURE HELD PER PROTOCOL, DR VILLAGOMEZ VERBALIZED AFTER BLEEDING STOPS 1-1 1/2HRS, THEN START HEPARIN GTT PER ORDER. PMRN
[2020-10-01 03:06] VITALS: BP 106/72
[2020-10-01 04:32] LABS: RED BLOOD COUNT 4.73 x10^6/uL (4.30-5.70); RED CELL DISTRIBUTION WIDTH 15.1 % (11.5-14.5); WHITE BLOOD COUNT 7.9 x10^3/uL (4.0-11.0)
[2020-10-01 07:00] VITALS: BP 123/77
[2020-10-01] MEDS: IPRATRPIUM/ALBUTEROL 0.5/2.5MG 3 ML NEBU. NEB SCH ×3 (07:16→15:59)
[2020-10-01] MEDS: BUDESONIDE 0.5 MG/2 ML NEBU. NEB SCH (07:16)
--- NOTE | 2020-10-01 07:49 | CARD ---
MR#: [id number] Account#: Date of Study: 09/30/2020 Ordering Physician: Kareen: RT Lucy(R) APPROVED REPORT Technologist: RT Lucy(R) Nurse: Silvia Pinedo RN Procedure(s) performed: MODERATE SEDATION TIME: 60 MINUTES FLUORO TIME: 20.9 MIN DOSE: 167 GYCM2 CONTRAST: 192CC VISI LHC, Complex attempted PCI of the RCA. [facility] Clinical Frailty Scale [facility] Clinical Frailty Scale: Moderately Frail Heart Failure Heart Failure: Yes If Yes, Newly Diagnosed: Yes If Yes, HF Type: Diastolic If Yes, NYHA Class: Class II CASE TECHNIQUE IV conscious sedation was used throughout procedure with appropriate monitoring and was performed in the presence of a registered nurse who was an independent trained observer other than the physician p erforming the procedure. During this case, Fluoroscopy and low osmolar contrast were used for imaging . Specimen(s) Removed: N/A Estimated Blood loss: 25 cc's. PROCEDURE NARRATIVE Clinical information: 80 y.o male presents with NSTEMI, chest pain and peak troponin of 6. Informed consent: Written informed consent was obtained from the patient after adequate discussion of the risks and wood efits of the procedure. Procedure details: ACCESS: The right wrist was prepped and draped in usual sterile fashion. Under 1% lidocaine local anesthesia a 6 Filipino Terumo sheath was placed in the right radial artery via the Seldinger technique. DIAGNOSTIC ANGIOGRAPHY: Right and left coronary arteries were engaged with a 6 Filipino TIG catheter. Diagnostic angiography i n multiple views were obtained. Next, a 6 Filipino pigtail catheter was placed in the left ventricle a nd a LVEDP was measured. A pullback was performed. All catheters were exchanged over J-tip guidewir e. FINDINGS: ======= Aorta: 110/80 LVEDP: 15 mmHg Left ventriculogram: Deferred due to known EF by echo of 50%. Coronary angiography: LM: Large caliber vessel with normal angiographic appearance LAD: Large caliber vessel with mild luminal irregularities. D1: Small caliber vessel with normal angiographic appearance LCX: Moderate caliber non-dominant vessel with mild luminal irregularities OM1: Moderate caliber vessel with normal angiographic appearance RCA: Large caliber dominant vessel with a mid 70% eccentric stenosis followed by a distal 95% calcifi ed stenosis. RPDA: Moderate caliber vessel with mild luminal irregularities. INTERVENTIONAL TECHNIQUE: Due to the presenting symptoms, angiographic findings and intervention was planned on the RCA. Bival irudin was used for anticoagulation. Through a 6 Filipino JR4 guide catheter initial attempts to advan ce a Prowater wire were unsuccessful. Next, a 6 Filipino AL-1 guide catheter was used for improved sup port. A Choice PT wire was ultimately able to traverse the distal RCA lesion. Attempts to advance a 3.0, 2.0 and 1.5 mm balloons with the support of a telescope guide extension device were unsuccessfu l. Finally advancement of a 1.2 mm balloon was unsuccessful. Therefore a decision was made that thi s was a balloon across the lesion and would need plaque modification. Further intervention was defer red with plans for atherectomy in 24 to 48 hours. There were no acute guide or wire related complica tions. CLOSURE: At case completion the right radial sheath was removed and a Terumo radial band was applied with 11 m L of air. Hemostasis was achieved. COMPLICATIONS: No acute complications noted Conclusion 1. Mildly elevated left-sided filling pressures 2. Severe one-vessel coronary artery disease involving a calcific distal RCA lesion at 95%. 3. Unsuccessful attempted balloon angioplasty of the distal RCA lesion due to significant calcificat ion and tortuosity. Recommendations 1. Continue aspirin 81 g daily 2. Continue heparin drip overnight 3. Plan for rotational atherectomy and high risk PCI of the RCA in 24 to 48 hours. Signed by : Jeffrey Simpson, Electronically Approved : 09/30/2020 16:20:39
[2020-10-01] MEDS: hydroCHLOROthiazide 25 MG TABLET PO SCH (09:30)
[2020-10-01] MEDS: CHOLECALCIFEROL (VITAMIN D3) 1,000 UNIT TABLET PO SCH (09:30)
[2020-10-01] MEDS: ASPIRIN ENTERIC COATED 81 MG TABLET.DR. PO SCH (09:30)
--- NOTE | 2020-10-01 10:08 | NUR ---
SS following for discharge planning. SS reviewed pt chart and discussed with pt RN. Pt is from home with spouse and is currently on room air. COVID19 negative. Pt had heart cath on 09/29/2020. SS spoke with Dr. Simpson this morning. Requesting transfer to for complicated PCI to RCA. SS contacted transfer team, ; fax [phone], and made request for transfer. SS faxed records as requested. laboratory technical specialist clouded images to . SS contacted Radiology and requested images be clouded to . SS currently awaiting acceptance decision at this time. Packet, transfer form, and ambulance form on the chart.
[2020-10-01 11:00] VITALS: BP 115/73
--- NOTE | 2020-10-01 11:44 | PDOC ---
[facility] [facility] PROGRESS NOTE Date of Service DOS: DATE: 10/01/20 TIME: 11:43 Chief Complaint Chief Complaint Chest pain and dizziness History of Present Illness History of Present Illness 10/01/20 Patient seen and examined at bedside Chart reviewed Discussed with RN IV Heparin Transfer process to has been started per cardiology - Distal RCA 95% stenosis and tortuous, made catheterization difficult. Cardiology recommended rotational atherectomy and high risk PCI of the RCA in 24 to 48 hours, need CT Surgery in the room during procedure thus transfer to 09/30/20 Patient seen and examined at bedside Chart reviewed Discussed with RN Discussed with Son as he was present in the room Heart catheterization planned for today 09/29/20 Patient seen and examined at bedside Chart reviewed Discussed with RN Discussed with Cardiology Troponins continue to increase, peaking at 6.1 yesterday Left cardiac catheterization planned for tomorrow per cardiology 09/28/20 Patient seen and examined at bedside Chart reviewed Discussed with RN Troponins have increased from < 0.017 to peak at 2.6 Echo demonstrates mildly diminished EF 09/27/20 The patient is a pleasant 80-year-old male who presents to the ER today with chest pain that has been occurring since 3:00 yesterday. It is intermittent, substernal. He has associated weakness and feels like he is going to pass out when he walks. He also feels short of breath, rates his symptoms at 7/10. It is worse with moving, better with sitting still, creates some anxiety for him. I discussed the case with the ER physician. We are going to admit the patient and consult Cardiology. Vitals/I&O Vitals/I&O: Vital Signs Date Time Temp Pulse Resp B/P (MAP) Pulse Ox O2 Delivery O2 Flow Rate FiO2 10/01/20 08:00 Room Air 10/01/20 07:21 96 10/01/20 07:00 97.9 80 18 123/77 (92) 97.9 09/30/20 12:18 2.0 I & O 09/30/20 09/30/20 10/01/20 15:00 23:00 07:00 Intake Total 200 ml 0 ml Output Total 100 ml 425 ml 200 ml Balance -100 ml -225 ml -200 ml Physical Exam General: Alert Heart: Regular rate Lungs: Clear Abdomen: Normal bowel sounds Extremities: No clubbing Skin: No significant lesion Labs Labs: Laboratory Tests Test 09/30/20 20:00 10/01/20 04:05 White Blood Count 7.4 x10^3/uL (4.0-11.0) 7.9 x10^3/uL (4.0-11.0) Red Blood Count 4.99 x10^6/uL (4.30-5.70) 4.73 x10^6/uL (4.30-5.70) Hemoglobin 13.7 g/dL (13.0-17.5) 13.0 g/dL (13.0-17.5) Hematocrit 41.9 % (39.0-53.0) 40.0 % (39.0-53.0) Mean Corpuscular Volume 84 fL (79-100) 85 fL (79-100) Mean Corpuscular Hemoglobin 27 pg (25-35) 27 pg (25-35) Mean Corpuscular Hemoglobin Concent 33 g/dL (31-37) 32 g/dL (31-37) Red Cell Distribution Width 15.2 % (11.5-14.5) 15.1 % (11.5-14.5) Platelet Count 223 x10^3/uL (140-400) 217 x10^3/uL (140-400) Neutrophils (%) (Auto) 60 % (31-73) Lymphocytes (%) (Auto) 21 % (24-48) Monocytes (%) (Auto) 15 % (0-9) Eosinophils (%) (Auto) 2 % (0-3) Basophils (%) (Auto) 1 % (0-3) Neutrophils # (Auto) 4.4 x10^3/uL (1.8-7.7) Lymphocytes # (Auto) 1.6 x10^3/uL (1.0-4.8) Monocytes # (Auto) 1.1 x10^3/uL (0.0-1.1) Eosinophils # (Auto) 0.2 x10^3/uL (0.0-0.7) Basophils # (Auto) 0.1 x10^3/uL (0.0-0.2) Heparin Anti-Xa Act, Unfractionated > 1.10 IU/mL (0.30-0.70) Assessment and Plan Assessmemt and Plan Problems Medical Problems: (1) Chest pain Status: Acute Assessment Non-STEMI Dyslipidemia Hypertension COPD and chronic dyspnea Plan Cardiac Monitoring Continue IV Heparin Continue Aspirin Transfer process to has been started per cardiology Agree with aspirin and lovenox per cardiology Agree with statin therapy per cardiology Continue low-dose beta-blockers per cardiology Left cardiac catheterization completed yesterday Trend labs Continue home medications DVT prophylaxis Full code Comment Review of Relevant I have reviewed the following items daniel (where applicable) has been applied. Medications: Current Medications Medications (Trade) Dose Ordered Sig/Jose Route PRN Reason Start Time Stop Time Status Last Admin Dose Admin Heparin Sodium/ Dextrose 250 ml @ 0 mls/hr CONT PRN IV PER PROTOCOL 09/30/20 18:45 09/30/20 22:31 Justifications for Admission Other Justification JAXSON SOTO III DO Oct 01, 2020 11:44
--- NOTE | 2020-10-01 12:17 | PDOC ---
KASIE GALVEZ CHIP MACHINE OPERATOR 10/01/20 1217: CARDIO Progress Notes Date and Time Date of Service 12/31/20 Time of Evaluation 1240 Subjective Subjective: No Chest Pain, No shortness of breath Vitals Vitals Vital Signs Date Time Temp Pulse Resp B/P (MAP) Pulse Ox O2 Delivery O2 Flow Rate FiO2 10/01/20 08:00 Room Air 10/01/20 07:21 96 10/01/20 07:00 97.9 80 18 123/77 (92) 97.9 09/30/20 12:18 2.0 Weight Weight [ ] Input and Output Intake and Output Intake and Output 10/01/20 07:00 Intake Total 200 ml Output Total 725 ml Balance -525 ml Intake Oral 200 ml Output Urine Total 725 ml Laboratory Labs Laboratory Tests Test 09/30/20 20:00 10/01/20 04:05 10/01/20 11:10 White Blood Count 7.4 x10^3/uL (4.0-11.0) 7.9 x10^3/uL (4.0-11.0) Red Blood Count 4.99 x10^6/uL (4.30-5.70) 4.73 x10^6/uL (4.30-5.70) Hemoglobin 13.7 g/dL (13.0-17.5) 13.0 g/dL (13.0-17.5) Hematocrit 41.9 % (39.0-53.0) 40.0 % (39.0-53.0) Mean Corpuscular Volume 84 fL (79-100) 85 fL (79-100) Mean Corpuscular Hemoglobin 27 pg (25-35) 27 pg (25-35) Mean Corpuscular Hemoglobin Concent 33 g/dL (31-37) 32 g/dL (31-37) Red Cell Distribution Width 15.2 % (11.5-14.5) 15.1 % (11.5-14.5) Platelet Count 223 x10^3/uL (140-400) 217 x10^3/uL (140-400) Neutrophils (%) (Auto) 60 % (31-73) Lymphocytes (%) (Auto) 21 % (24-48) Monocytes (%) (Auto) 15 % (0-9) Eosinophils (%) (Auto) 2 % (0-3) Basophils (%) (Auto) 1 % (0-3) Neutrophils # (Auto) 4.4 x10^3/uL (1.8-7.7) Lymphocytes # (Auto) 1.6 x10^3/uL (1.0-4.8) Monocytes # (Auto) 1.1 x10^3/uL (0.0-1.1) Eosinophils # (Auto) 0.2 x10^3/uL (0.0-0.7) Basophils # (Auto) 0.1 x10^3/uL (0.0-0.2) Heparin Anti-Xa Act, Unfractionated > 1.10 IU/mL (0.30-0.70) 0.73 IU/mL (0.30-0.70) Physical Exam HEENT: Neck Supple W Full Motion Chest: Symmetric LUNGS: Clear to Auscultation Heart: RRR Abdomen: Soft N/T Extremities: No Edema, Other (right wrist arteriotomy site soft, clean, and dry. No hematoma present) Neurology: alert, oriented, follow commands Assessment Assessment 1. NSTEMI 2. CAD; cath with one-vessel disease involving a calcific distal RCA lesion at 95%. balloon angioplasty unsuccessful due to significant calcification and tortuosity. 3. Acute on chronic diastolic CHF; Echo with preserved LV systolic function with moderate hypokinesis of the basal to mid inferior, inferolateral mcmahan. Cath with mildly elevated filling pressures 4. Hypertension; controlled 5. Hyperlipidemia; statin 6. COPD Recommendations Continue ASA, statin, BB therapy Heparin gtt ongoing Plan for inpatient transfer to for high risk PCI of the RCA Justicifation of Admission Dx: Justifications for Admission: Justification of Admission Dx: Yes [place]: Acute NSTEMI ELIZABETH CASTANEDA MD 10/02/20 0830: CARDIO Progress Notes Plan Plan Late entry for 10/01/20 Pt. seen and examined. Discussed with family. KASIE GALVEZ APRN Oct 01, 2020 12:17 ELIZABETH CASTANEDA MD Oct 02, 2020 08:30
[2020-10-01 15:00] VITALS: BP 120/72
--- NOTE | 2020-10-01 16:30 | NUR ---
SS following up with discharge planning. Pt accepted at . Bed number [id number]. Report#[phone]. Accepting Physician, Dr. Milton. Pt will discharge today and go to via [facility] ambulance, . Packet, transfer form, and ambulance form on the chart. Pt's RN and pt notified.
--- NOTE | 2020-10-01 17:45 | NUR ---
Report called to nurse Alejandra at 1640. patient transferred to at approximately 1705 via EMS/stretcher. Patient sent to on heparin gtt and [facility] RN aware. all belongings taken to with patient. number given to AHSAN Roberts for any questions that may arise.
[2020-10-01] MEDS ORDERED: METOPROLOL TART IMMED RELEASE 25 MG TABLET. PO SCH (21:00)
--- NOTE | 2020-10-01 21:04 | DS ---
DATE OF DISCHARGE: 10/01/2020 ADMITTING DIAGNOSES: Chest pain and lightheadedness. DISCHARGE DIAGNOSES: Coronary artery disease, noted on cardiac catheterization (Cardiology would like to do a rotational atherectomy, but he apparently had to be transferred to . They found 95% lesion in the distal RCA that was angioplastied, but really was unsuccessful with the angioplasty). [id number] systolic and diastolic heart failure, hypertension, hyperlipidemia, COPD, and probable acute myocardial infarction CONSULTS: Cardiology. PROCEDURES: Cardiac catheterization. HOSPITAL COURSE: The patient is a pleasant elderly male who presented with some chest pain and dizziness and we admitted the patient and consulted Cardiology. His troponins were a little high and peaked at 6.4. The patient was taken to the laborer syrup machine. They tried to do an angioplasty of the distal RCA, but that was unsuccessful. He needs to have a rotational arthrectomy, but apparently that has to be done at with plan to transfer to later today if it can be arranged. DISPOSITION: Transferred to [facility]. ACTIVITY: As tolerated. DIET: Cardiac. DISCHARGE MEDICATIONS: Please see the MRAD. OTHER MEDICATIONS: We are continuing his atorvastatin 40 a day, heparin drip, aspirin 81 a day, vitamin D, hydrochlorothiazide 25 a day, Flomax 0.8 a day, Pulmicort 0.5 b.i.d. and p.r.n. albuterol. Total time [address]: Nimo TID: [id number]
== END 2020-10-01 17:05 | disposition short-term general hospital (02) | DRG 280 ==
LOC: ER 11:12 → 2 SOUTH 12:30 → OBSVTOIN 14:38
PROVIDERS: ADMIT Internal Medicine; ATTEND Internal Medicine
PROC: 4A023N7 Measurement of Cardiac Sampling and Pressure, Left Heart, Percutaneous Approach (ICD-10-PCS; principal; 2020-09-30)
PROC: B211YZZ Fluoroscopy of Multiple Coronary Arteries using Other Contrast (ICD-10-PCS; 2020-09-30)
PROC: 3E07317 Introduction of Other Thrombolytic into Coronary Artery, Percutaneous Approach (ICD-10-PCS; 2020-09-30)
DX: I21.4 Non-ST elevation (NSTEMI) myocardial infarction (principal); I50.43 Acute on chronic combined systolic (congestive) and diastolic (congestive) heart failure; N40.0 Benign prostatic hyperplasia without lower urinary tract symptoms; E78.5 Hyperlipidemia, unspecified; I11.0 Hypertensive heart disease with heart failure; J44.9 Chronic obstructive pulmonary disease, unspecified; F41.9 Anxiety disorder, unspecified; I25.10 Atherosclerotic heart disease of native coronary artery without angina pectoris; Z20.822 Contact with and (suspected) exposure to COVID-19; Z87.891 Personal history of nicotine dependence; Z83.3 Family history of diabetes mellitus
CPT/HCPCS: 36415; 71045; 80053; 83690; 83880; 84484; 85025; 85027; 85520; 87426; 93005; 93306; 93458; 94640; 94760; 96374; 96375; 99152; 99153; 99285; C1725; C1769; C1892; G0378; G0379; J0583; J1644; J1650; J2250; J2270; J2405; J3010; J3490; Q9967; U0003; U0005; 97116-GP; 97530-GP; J7626